=== PATIENT | female | born 1965 | race Caucasian/White ===

== ENCOUNTER → 2022-06-26 | Day surgery (SDC) | payer BC, OTHER ==
[~2022-06-26] MED LIST: ALTOPREV40 MG PO; ANEXSIA 7.5/321 EACH PO; ATORVASTATIN CA20 MG PO; BENTYL PO; BENTYL10 MG PO; DIOVAN HCT 1601 EAC1 PO; DIOVAN HCT PO; FENOFIBRATE145 MG PO; FENTANYL CITRATE/PF 100MCG/2 ML INJ ONE; GLYBURIDE-METF1 EAC1 PO; HUMIRA40 MG/0.1 INJ; HUMULIN N100 UNITS/ SQ; HYOSCYAMINE SULFATE 0.5 MG/ML INJ ONE; LACTATED RINGER'S 1,000 ML ONE; LEVSIN0.125 MG PO; LIDOCAINE HCL 2% LOCAL INJ 5 ML SDV VIAL INJ ONE; LIOTHYRONINE S25 MCG PO; METFORMIN HCL500 MG PO; METOPROLOL TART25 MG PO; MIDAZOLAM HCL 2 MG/2 ML VIAL ONE; MONTELUKAST SOD10 MG PO; NORCO 5-325 TA1 EACH PO; NOVOLIN 70100 UNIT/3 SC; OLMESARTAN-HCT1 EAC2 PO; ONDANSETRON PO; PANTOPRAZOLE SO40 MG PO; PENTASA500 MG PO; PROMETHAZINE HC25 M1 PO; PROPOFOL IV EMULSION 10 MG/ML 20 ML VIAL ONE; PROVIGIL200 MG PO; RANITIDINE HCL300 M1 PO; SERTRALINE HCL100 MG PO; SYNTHROID100 MCG PO; TRAZODONE HCL100 MG PO; TRICOR PO; VIT D PO; XANAX1 MG PO; Z.0.ALBUTEROL SULF8. IH; Z.0.CEFTIN500 MG PO; Z.0.DEXILANT60 MG PO; Z.0.K DUR10 MEQ PO; Z.0.LASIX80 MG PO; Z.0.NORCO 7.5-3251 E PO; Z.0.PHENERGAN25 M1 PO; Z.0.PREDNISONE20 MG PO; Z.0.PREVACID30 MG PO; Z.0.SYNTHROID175 MCG PO; Z.0.ZOFRAN4 MG PO; Z.1.METFORMIN HCL100 PO; [UNRECOGNIZED DRUG - OTHER] PO; [UNRECOGNIZED DRUG - OTHER] PO
[2022-06-26 14:21] VITALS: BP 132/65
== END | disposition home or self-care (01) ==
LOC: OR 11:24
PROVIDERS: ATTEND Internal Medicine Gastroenterology
DX: K50.90 Crohn's disease, unspecified, without complications (principal); D12.2 Benign neoplasm of ascending colon; D12.4 Benign neoplasm of descending colon; K64.8 Other hemorrhoids; K62.4 Stenosis of anus and rectum; E11.9 Type 2 diabetes mellitus without complications; Z01.810 Encounter for preprocedural cardiovascular examination; Z79.4 Long term (current) use of insulin; Z79.84 Long term (current) use of oral hypoglycemic drugs; Z79.899 Other long term (current) drug therapy
CPT/HCPCS: 36415; 45378; 45380; 45385; 82948; 83993; 86140; 88305; 93005; J1980; J2001; J2250